=== PATIENT | female | born 1945 | race Caucasian/White ===

== ENCOUNTER → 2017-07-13 | Outpatient (CLI) | payer MEDICARE, OTHER ==
[2017-07-13] MEDS: GADOBUTROL 7.5 MMOL/7.5 ML VIAL IV ×2 (13:37)
== END | disposition home or self-care (01) ==
LOC: KCIC MRI 12:50
DX: G43.909 Migraine, unspecified, not intractable, without status migrainosus (principal); I10 Essential (primary) hypertension; M50.31 Other cervical disc degeneration, high cervical region
CPT/HCPCS: 70553; A9585

== ENCOUNTER → 2017-08-18 | Day surgery (SDC) | payer MEDICARE, OTHER ==
[~2017-08-18] MED LIST: LIDOCAINE 1% PF 2 ML VIAL.; LIDOCAINE 1% PF 2 ML VIAL. ID; MIDAZOLAM HCL/PF 2 MG/2 ML VIAL. IV; PROPOFOL 20 ML IV; fentaNYL PF VIAL 100 MCG/2 ML VIAL IV
[2017-08-18] MEDS: IV RINGERS,LACTATED 1000ML 1,000 ML IV (09:20)
== END | disposition home or self-care (01) ==
LOC: ENDOS 08:41
DX: K29.50 Unspecified chronic gastritis without bleeding (principal); K44.9 Diaphragmatic hernia without obstruction or gangrene; K21.0 Gastro-esophageal reflux disease with esophagitis; Z88.6 Allergy status to analgesic agent; Z88.1 Allergy status to other antibiotic agents; Z88.8 Allergy status to other drugs, medicaments and biological substances
CPT/HCPCS: 43239; 88305; 88342; J2704

== ENCOUNTER → 2017-12-19 | Day surgery (SDC) | payer MEDICARE, OTHER ==
[~2017-12-19] MED LIST changes: +KETOROLAC 30 MG/ML INJ FOR OR. INJ; -LIDOCAINE 1% PF 2 ML VIAL.; +LIDOCAINE 2% PF Vial for OR 5 ML VIAL.; -MIDAZOLAM HCL/PF 2 MG/2 ML VIAL. IV; +MORPHINE SULFATE 2 MG/ML DISP.SYRIN. IV; +ONDANSETRON PF 4 MG/2 ML VIAL. IV; +PROCHLORPERAZINE 10 MG/2 ML VIAL. IV
[2017-12-19] MEDS: IV RINGERS,LACTATED 1000ML 1,000 ML IV (10:46)
[2017-12-19] MEDS: SUMAtriptan SUCCINATE 100 MG TABLET PO (12:07)
== END | disposition home or self-care (01) ==
LOC: SURG 10:13
DX: G56.01 Carpal tunnel syndrome, right upper limb (principal); I10 Essential (primary) hypertension; J44.9 Chronic obstructive pulmonary disease, unspecified; E66.9 Obesity, unspecified; Z68.31 Body mass index [BMI] 31.0-31.9, adult; K21.9 Gastro-esophageal reflux disease without esophagitis; Z88.5 Allergy status to narcotic agent; Z88.8 Allergy status to other drugs, medicaments and biological substances; Z98.42 Cataract extraction status, left eye; Z98.41 Cataract extraction status, right eye; Z96.1 Presence of intraocular lens; Z98.890 Other specified postprocedural states; I25.10 Atherosclerotic heart disease of native coronary artery without angina pectoris; E78.00 Pure hypercholesterolemia, unspecified; Z98.51 Tubal ligation status; Z90.710 Acquired absence of both cervix and uterus; M19.90 Unspecified osteoarthritis, unspecified site; Z96.653 Presence of artificial knee joint, bilateral; Z79.899 Other long term (current) drug therapy
CPT/HCPCS: 64721; A7015; J0690; J1885; J2001; J2704

== ENCOUNTER → 2018-04-25 | Outpatient (CLI) | payer MEDICARE, OTHER ==
[2017-12-19 13:00] VITALS: BP 165/69
[~2018-04-25] MED LIST changes: +ACET325T9 PO; +AMLO2.5T2 PO; +AMLO5TAB4 PO; +CALC-44 PO; +CELE200C PO; +CETI10CA5 PO; +FERR325C PO; +GUAI-108 PO; +HYDR12.58 PO; +Hydrocodone Bit/Acetaminophen PO; -KETOROLAC 30 MG/ML INJ FOR OR. INJ; -LIDOCAINE 1% PF 2 ML VIAL. ID; -LIDOCAINE 2% PF Vial for OR 5 ML VIAL.; +LISI-130 PO; +LISI-334 PO; +MAGN300C PO; +MAGN400C PO; +METO25TA2 PO; -MORPHINE SULFATE 2 MG/ML DISP.SYRIN. IV; -ONDANSETRON PF 4 MG/2 ML VIAL. IV; +POTASSIUM CITRATE PO; -PROCHLORPERAZINE 10 MG/2 ML VIAL. IV; -PROPOFOL 20 ML IV; +RANI150T21 PO; +SUMA100T3 PO; +TRAM50TA PO; +VITA1TAB19 PO; +WARF-78 PO; +Warfarin Sodium MC; +ZEAX100P MC; -fentaNYL PF VIAL 100 MCG/2 ML VIAL IV
[2018-04-25 14:34] LABS: BASO # 0.1 x10^3/uL (0.0-0.2); BASO % 1 % (0-3); EOS # 0.4 x10^3/uL (0.0-0.7); EOS % 6 % (0-3); HEMATOCRIT 37.6 % (36.0-47.0); HEMOGLOBIN 13.1 g/dL (12.0-15.5); LYMPH # 2.7 x10^3/uL (1.0-4.8); LYMPH % 40 % (24-48); MEAN CORPUSCULAR HEMOGLOBIN 34 pg (25-35); MEAN CORPUSCULAR HGB CONC 35 g/dL (31-37); MEAN CORPUSCULAR VOLUME 97 fL (79-100); MONO # 0.8 x10^3/uL (0.0-1.1); MONO % 12 % (0-9); NEUT # 2.7 x10^3uL (1.8-7.7); NEUT % 41 % (31-73); PLATELET COUNT 222 x10^3/uL (140-400); RED BLOOD COUNT 3.87 x10^6/uL (3.50-5.40); RED CELL DISTRIBUTION WIDTH 13.5 % (11.5-14.5); WHITE BLOOD COUNT 6.7 x10^3/uL (4.0-11.0)
[2018-04-25 14:42] LABS: CREATININE 1.4 mg/dL (0.6-1.0); GFR 36.8
--- NOTE | 2018-04-25 16:06 | RAD ---
EXAM: Brain MRI without contrast. HISTORY: Diplopia. Headaches. TECHNIQUE: Multiplanar, multisequence magnetic resonance imaging of the brain was performed without intravenous contrast. Contrast could not be administered due to renal insufficiency. COMPARISON: 07/13/2017 FINDINGS: There is no restricted diffusion to suggest acute or subacute infarction. There is no susceptibility effect to suggest hemorrhage. There is no mass effect or midline shift. There is no hydrocephalus. There are multiple scattered areas of signal change throughout the cerebral white matter, a nonspecific finding likely due to chronic small vessel disease. There is cerebral volume loss. There is evidence of lens surgery. There is ethmoid sinus mucosal thickening. There is a tiny amount of fluid within the mastoid air cells. There are normal flow voids within the cerebral vessels. IMPRESSION: 1. No acute intracranial finding. 2. Scattered areas of signal change within the cerebral white matter, likely due to chronic small vessel disease. 3. Cerebral volume loss. Electronically signed by: Za Álvarez MD (04/25/2018 4:03 PM) [id number]
== END | disposition home or self-care (01) ==
LOC: MRI 14:18
PROVIDERS: ATTEND Psychiatry & Neurology Neurology
DX: R51 Headache (principal); J34.89 Other specified disorders of nose and nasal sinuses
CPT/HCPCS: 36415; 70551; 82565; 84520; 85025; 85651

== ENCOUNTER → 2018-11-16 | Day surgery (SDC) | payer MEDICARE, OTHER ==
[~2018-11-16] MED LIST changes: +ALBUTEROL SULFATE 2.5 MG/3 ML NEBU. NEB ONE; +ALBUTEROL SULFATE 2.5 MG/3 ML NEBU. ONE; +IV RINGERS,LACTATED 1000ML 1,000 ML IV SCH; +LIDOCAINE 2% PF 5 ML VIAL. ONE; +ONDANSETRON PF 4 MG/2 ML VIAL. IV PRN; +PROCHLORPERAZINE 10 MG/2 ML VIAL. IV PRN; +PROPOFOL 40 ML IV ONE; +RANI-376 PO; -RANI150T21 PO; +fentaNYL PF VIAL 100 MCG/2 ML VIAL IV PRN
[2018-11-16 09:43] VITALS: BP 126/59
--- NOTE | 2018-11-19 15:06 | PATHOLOGY ---
[facility] Accession Number: [id number] . 01 Material submitted: . esophagus - DISTAL ESOPHAGUS BIOPSY. Modifiers: distal . 01 Clinical history: . Dysphasia, family history of colon cancer. . 02 Diagnosis: Esophageal biopsies, distal esophagus: - Segments of hyperplastic squamous esophageal mucosa consistent with reflux esophagitis. (JPM:juan c; 11/19/2018) QMS/11/19/2018 . 02 Comment: Sections of the distal esophageal biopsy reveal segments of tangentially oriented, hyperplastic squamous esophageal mucosa. Focally, there are a few intraepithelial eosinophils. The findings are consistent with reflux esophagitis. There is no evidence of Daniels's change, dysplasia, or malignancy. (JPM:juan c; 11/19/2018) . 02 Electronically signed: . Roland Swift MD, Pathologist NPI- [id number] . 01 Gross description: . Received in formalin labeled "Angle Clarke, distal esophagus biopsy" is a 1.1 x 0.3 x 0.1 cm aggregate of bond-brown mucosa fragments. The specimen is submitted in A1. ([facility]; 11/18/2018) SYC/SYC . 02 Pathologist provided ICD-10: K21.0 . 02 CPT . 310304 Specimen Comment: A courtesy copy of this report has been sent to Specimen Comment: [phone], , . Specimen Comment: Report sent to ,DR GONZALES / DR DEJESUS Performed at: 01 [facility] [address], [place], [place] [id number] MD Gus Montes MD Phone: [phone] Performed at: 02 [facility] [address] [place], [place] [id number] MD Roland Swift MD Phone: [phone]
== END ==
LOC: ENDOS 06:55
PROVIDERS: ATTEND Internal Medicine Gastroenterology
DX: Z12.11 Encounter for screening for malignant neoplasm of colon (principal); Z86.010 Personal history of colon polyps; K57.30 Diverticulosis of large intestine without perforation or abscess without bleeding; K21.0 Gastro-esophageal reflux disease with esophagitis; K22.2 Esophageal obstruction; K44.9 Diaphragmatic hernia without obstruction or gangrene; K64.0 First degree hemorrhoids; I10 Essential (primary) hypertension; E78.5 Hyperlipidemia, unspecified; J45.909 Unspecified asthma, uncomplicated; G47.33 Obstructive sleep apnea (adult) (pediatric); M19.90 Unspecified osteoarthritis, unspecified site; Z80.0 Family history of malignant neoplasm of digestive organs; Z79.899 Other long term (current) drug therapy; Z90.710 Acquired absence of both cervix and uterus; Z96.60 Presence of unspecified orthopedic joint implant; Z88.6 Allergy status to analgesic agent; Z88.8 Allergy status to other drugs, medicaments and biological substances; Z98.890 Other specified postprocedural states
CPT/HCPCS: 43239; 43450; 88305; 94640; G0105; J2001; J2704; J7613; 45378

== ENCOUNTER 2021-03-24 14:38 | Emergency (ER) | payer MEDICARE, OTHER ==
[~2021-03-24] VITALS: Ht 162.6 cm; Wt 72.0 kg
[~2021-03-24 14:38] MED LIST changes: -ALBUTEROL SULFATE 2.5 MG/3 ML NEBU. NEB ONE; -ALBUTEROL SULFATE 2.5 MG/3 ML NEBU. ONE; -IV RINGERS,LACTATED 1000ML 1,000 ML IV SCH; -LIDOCAINE 2% PF 5 ML VIAL. ONE; -LISI-334 PO; +LISI20TA18 PO; -ONDANSETRON PF 4 MG/2 ML VIAL. IV PRN; -PROCHLORPERAZINE 10 MG/2 ML VIAL. IV PRN; -PROPOFOL 40 ML IV ONE; -WARF-78 PO; +WARF5TAB2 PO; -fentaNYL PF VIAL 100 MCG/2 ML VIAL IV PRN
[2021-03-24 15:24] LABS: BASO # 0.1 x10^3/uL (0.0-0.2); BASO % 1 % (0-3); EOS # 0.2 x10^3/uL (0.0-0.7); EOS % 4 % (0-3); HEMOGLOBIN 13.3 g/dL (12.0-15.5); LYMPH # 2.5 x10^3/uL (1.0-4.8); LYMPH % 38 % (24-48); MEAN CORPUSCULAR HEMOGLOBIN 34 pg (25-35); MEAN CORPUSCULAR HGB CONC 34 g/dL (31-37); MEAN CORPUSCULAR VOLUME 100 fL (79-100); MONO # 0.8 x10^3/uL (0.0-1.1); MONO % 13 % (0-9); NEUT # 2.9 x10^3/uL (1.8-7.7); NEUT % 45 % (31-73); PLATELET COUNT 229 x10^3/uL (140-400); RED CELL DISTRIBUTION WIDTH 14.3 % (11.5-14.5); WHITE BLOOD COUNT 6.5 x10^3/uL (4.0-11.0)
[2021-03-24 15:40] LABS: CALCIUM 8.8 mg/dL (8.5-10.1); GFR 53.8; POTASSIUM 3.5 mmol/L (3.5-5.1)
[2021-03-24 15:46] LABS: ALBUMIN 3.5 g/dL (3.4-5.0); ALBUMIN/GLOBULIN RATIO 0.9 (1.0-1.7); MAGNESIUM 1.9 mg/dL (1.8-2.4); TOTAL BILIRUBIN 0.2 mg/dL (0.2-1.0); TOTAL PROTEIN 7.5 g/dL (6.4-8.2)
[2021-03-24 17:00] LABS: BILIRUBIN,URINE NEGATIVE (NEG); CLARITY,URINE CLOUDY; COLOR,URINE YELLOW; NITRITE,URINE NEGATIVE (NEG); PH,URINE 6.5 (<5.0-8.0); PROTEIN,URINE NEGATIVE (NEG-TRACE); UROBILINOGEN,URINE 0.2 mg/dL (0.2 mg/dL)
[2021-03-24 17:09] LABS: BACTERIA,URINE 0 /HPF (0-FEW); RBC,URINE 0 /HPF (0-2); WBC,URINE 20-40 /HPF (0-4)
[2021-03-24] MEDS ORDERED: cefTRIAXone IV Push 1 GM VIAL. IVP ONE (17:15)
--- NOTE | 2021-03-24 17:28 | EKG ---
[facility] [address] [place] [address] Test Date: 2021-03-24 Test Time: 14:45:48 Pat Name: AYAKA VENTURA Department: Room: Gender: F Bioinformaticist: : 1945 Requested By: SHABANA PERLA Order Number: [id number] Reading MD: Anderson Alegria Measurements Intervals [place] Rate: 91 P: DE: QRS: 29 QRSD: 82 T: 2 QT: 386 QTc: 477 Interpretive Statements ATRIAL FIB/FLUTTER T ABNORMALITY IN ANTERIOR LEADS INFEROLATERAL LEADS PROLONGED QT ABNORMAL ECG Electronically Signed On 03-26-2021 13:35:02 CDT by Anderson Alegria
--- NOTE | 2021-03-24 17:36 | PHYS DOC ---
Past Medical History Past Medical History: A-Fib Past Surgical History: Hysterectomy, Knee Replacement, Tubal ligation Smoking Status: Never Smoker Alcohol Use: None General Adult EDM: Chief Complaint: near syncope HPI: HPI: Patient is a 75 year old female who was brought here by EMS from a local dermatology clinic for evaluation of general weakness and near syncope. Patient did not eat lunch today, she ate a small breakfast, she was at the dermatology clinic today to have some skin lesions burned off and have biopsy done. They injected benadryl into 5 skin lesions on her body and extremities. They managed to do the punched biopsy and burned off the skin lesions. Patient then started felt dizzy and weak, felt like she will pass out, she fell nauseous so she was brought here for evaluation. Patient denies any chest pain, no abdominal pain. Patient says she never passed out. Patient denied headache, no neck pain, no abdominal pain. Review of Systems: Review of Systems: Constitutional: Denies fever or chills. [] Eyes: Denies change in visual acuity. [] HENT: Denies nasal congestion or sore throat. [] Respiratory: Denies cough or shortness of breath. [] Cardiovascular: Denies chest pain or edema. [] GI: Denies abdominal pain, nausea, vomiting, bloody stools or diarrhea. [] : Denies dysuria. [] Musculoskeletal: Denies back pain or joint pain. [] Integument: Denies rash. [] Neurologic: Denies headache, focal weakness or sensory changes. [] Endocrine: Denies polyuria or polydipsia. [] Lymphatic: Denies swollen glands. [] Psychiatric: Denies depression or anxiety. [] Heart Score: C/O Chest Pain: N/A Risk Factors: Risk Factors: DM, Current or recent (<one month) smoker, HTN, HLP, family history of CAD, obesity. Risk Scores: Score 0 - 3: 2.5% MACE over next 6 weeks - Discharge Home Score 4 - 6: 20.3% MACE over next 6 weeks - Admit for Clinical Observation Score 7 - 10: 72.7% MACE over next 6 weeks - Early Invasive Strategies Current Medications: Current Medications Medications (Trade) Dose Ordered Sig/Teo Start Time Stop Time Status Last Admin Dose Admin Ceftriaxone Sodium (Rocephin) 1 gm 1X ONCE 03/24/21 17:15 03/24/21 17:16 DC Allergies: Allergies: Allergies Coded Allergies Type Severity Reaction Last Updated Verified adhesive Allergy Intermediate itchy and red skin 03/24/21 Yes codeine Allergy Intermediate Hives 03/24/21 No hydrocodone Allergy Intermediate Hives 03/24/21 Yes hydromorphone Allergy Intermediate hives 03/24/21 Yes morphine Allergy Intermediate couldn't move bp affected 03/24/21 No omeprazole Allergy Intermediate Hives 03/24/21 Yes oxycodone Allergy Intermediate Hives 11/16/18 Yes valdecoxib Allergy Intermediate dizzy 11/16/18 No Physical Exam: PE: Constitutional: Well developed, well nourished, no acute distress, non-toxic a ppearance. [] HENT: Normocephalic, atraumatic, bilateral external ears normal, oropharynx moist, no oral exudates, nose normal. [] Eyes: PERRLA, EOMI, conjunctiva normal, no discharge. [] Neck: Normal range of motion, no tenderness, supple, no stridor. [] Cardiovascular:Heart rate with irregular regular rhythm, no murmur [] Lungs & Thorax: Bilateral breath sounds clear to auscultation [] Abdomen: Bowel sounds normal, soft, no tenderness, no masses, no pulsatile javon s. [] Skin: Warm, dry, no erythema, no rash. [] Back: No tenderness, no CVA tenderness. [] Extremities: No tenderness, no cyanosis, no clubbing, ROM intact, no edema. [] Neurologic: Alert and oriented X 3, normal motor function, normal sensory function, no focal deficits noted. [] Psychologic: Affect normal, judgement normal, mood normal. [] Current Patient Data: Labs: Laboratory Tests Test 03/24/21 14:51 03/24/21 16:55 White Blood Count 6.5 x10^3/uL (4.0-11.0) Red Blood Count 3.90 x10^6/uL (3.50-5.40) Hemoglobin 13.3 g/dL (12.0-15.5) Hematocrit 39.0 % (36.0-47.0) Mean Corpuscular Volume 100 fL (79-100) Mean Corpuscular Hemoglobin 34 pg (25-35) Mean Corpuscular Hemoglobin Concent 34 g/dL (31-37) Red Cell Distribution Width 14.3 % (11.5-14.5) Platelet Count 229 x10^3/uL (140-400) Neutrophils (%) (Auto) 45 % (31-73) Lymphocytes (%) (Auto) 38 % (24-48) Monocytes (%) (Auto) 13 % (0-9) H Eosinophils (%) (Auto) 4 % (0-3) H Basophils (%) (Auto) 1 % (0-3) Neutrophils # (Auto) 2.9 x10^3/uL (1.8-7.7) Lymphocytes # (Auto) 2.5 x10^3/uL (1.0-4.8) Monocytes # (Auto) 0.8 x10^3/uL (0.0-1.1) Eosinophils # (Auto) 0.2 x10^3/uL (0.0-0.7) Basophils # (Auto) 0.1 x10^3/uL (0.0-0.2) Sodium Level 140 mmol/L (136-145) Potassium Level 3.5 mmol/L (3.5-5.1) Chloride Level 103 mmol/L (98-107) Carbon Dioxide Level 30 mmol/L (21-32) Anion Gap 7 (6-14) Blood Urea Nitrogen 23 mg/dL (7-20) H Creatinine 1.0 mg/dL (0.6-1.0) Estimated GFR (Cockcroft-Gault) 53.8 BUN/Creatinine Ratio 23 (6-20) H Glucose Level 132 mg/dL (70-99) H Calcium Level 8.8 mg/dL (8.5-10.1) Magnesium Level 1.9 mg/dL (1.8-2.4) Total Bilirubin 0.2 mg/dL (0.2-1.0) Aspartate Amino Transferase (AST) 20 U/L (15-37) Alanine Aminotransferase (ALT) 22 U/L (14-59) Alkaline Phosphatase 58 U/L (46-116) Troponin I Quantitative < 0.017 ng/mL (0.000-0.055) YQ-Gjc-A-Type Natriuretic Peptide 1222 pg/mL (0-449) H Total Protein 7.5 g/dL (6.4-8.2) Albumin 3.5 g/dL (3.4-5.0) Albumin/Globulin Ratio 0.9 (1.0-1.7) L Urine Collection Type Unknown Urine Color Yellow Urine Clarity Cloudy Urine pH 6.5 (<5.0-8.0) Urine Specific [place] 1.015 (1.000-1.030) Urine Protein Negative mg/dL (NEG-TRACE) Urine Glucose (UA) Negative mg/dL (NEG) Urine Ketones (Stick) Negative mg/dL (NEG) Urine Blood Negative (NEG) Urine Nitrite Negative (NEG) Urine Bilirubin Negative (NEG) Urine Urobilinogen Dipstick 0.2 mg/dL (0.2 mg/dL) Urine Leukocyte Esterase Small (NEG) Urine RBC 0 /HPF (0-2) Urine WBC 20-40 /HPF (0-4) Urine Squamous Epithelial Cells Few /LPF Urine Renal Epithelial Cells Few /LPF Urine Bacteria 0 /HPF (0-FEW) Laboratory Tests 03/24/21 14:51 Laboratory Tests 03/24/21 14:51 Vital Signs: Vital Signs Date Time Temp Pulse Resp B/P (MAP) Pulse Ox O2 Delivery O2 Flow Rate FiO2 03/24/21 16:26 65 14 135/72 (93) 97 Room Air 03/24/21 14:55 98.5 98.5 EKG: EKG: EKG was done at 1445, heart rate 91 bpm, atrial flutter no ST segment elevation Radiology/Procedures: Radiology/Procedures: [] Course & Med Decision Making: Course & Med Decision Making Pertinent Labs and Imaging studies reviewed. (See chart for details) Patient is a 75-year-old female who was brought here by EMS from a local dermatology clinic due to weakness and near syncope. Work-up in the ER was normal. Patient was given food to eat in ER, she margarito much better, she want to go home. Patient granddaughter was here to take her home. Malgorzata Disclaimer: Malgorzata Disclaimer: This electronic medical record was generated, in whole or in part, using a voice recognition dictation system. Departure Departure Impression: Primary Impression: Near syncope Disposition: 01 HOME / SELF CARE / HOMELESS Condition: STABLE Referrals: OM AKHTAR MD (PCP) Follow up with your doctor this week as needed Patient Instructions: Near-Syncope Additional Instructions: Thank you for visiting our Emergency Department. We appreciate you trusting us with your care. If any additional problems come up don't hesitate to return to visit us. Please follow up with your primary care provider so they can plan additional care if needed and know about the problem that you had. If symptoms worsen come back to the Emergency Department. Any concerning symptoms that start such as chest pain, shortness of air, weakness or numbness on one side of the body, running high fevers or any other concerning symptoms return to the ER. SHABANA PERLA DO Mar 24, 2021 17:36
[2021-03-24 17:48] VITALS: BP 152/80
== END 2021-03-24 17:49 | disposition home or self-care (01) ==
LOC: ER 14:38
DX: R55 Syncope and collapse (principal); I48.91 Unspecified atrial fibrillation; Z88.5 Allergy status to narcotic agent; Z88.8 Allergy status to other drugs, medicaments and biological substances
CPT/HCPCS: 36415; 80053; 81001; 83735; 83880; 84484; 85025; 87086; 93005; 96374; 99284; J0696